=== PATIENT | female | born 1960 | race Two or more races ===

== ENCOUNTER 2023-02-01 12:20 | Emergency (ER) | payer MEDICAID, OTHER ==
[~2023-02-01] VITALS: Ht 154.9 cm; Wt 62.1 kg
[2023-02-01 12:41] VITALS: BP 140/90; PULSE 120; RESP 18; TEMP 99.7; O2SAT 95
[2023-02-01 13:43] LABS: FLU A ANTIGEN negative (NEGATIVE); FLU B ANTIGEN NEGATIVE (NEGATIVE)
[2023-02-01] MEDS ORDERED: ACETAMINOPHEN EXTRA STRENGTH 500 MG TAB PO ONE (13:45)
[2023-02-01] MEDS ORDERED: NACL 0.9% 1,000 ML IV ONE (13:45)
[2023-02-01] MEDS ORDERED: KETOROLAC 30 MG/ML VIAL IVP ONE (13:45)
[2023-02-01] MEDS ORDERED: KETOROLAC 30 MG/ML VIAL ONE (14:50)
[2023-02-01] MEDS ORDERED: ACETAMINOPHEN EXTRA STRENGTH 500 MG TAB ONE (14:50)
[2023-02-01] MEDS ORDERED: ALBU0.63 NEB (15:23)
[2023-02-01] MEDS ORDERED: ACET-10509 PO (15:23)
[2023-02-01] MEDS ORDERED: TAM75 PO (15:23)
[2023-02-01 15:40] VITALS: BP 135/80; PULSE 89; RESP 18; TEMP 98; O2SAT 99
== END 2023-02-01 15:40 | disposition home or self-care (01) ==
LOC: MED 12:20
DX: U07.1 COVID-19 (principal); E11.9 Type 2 diabetes mellitus without complications; Z88.5 Allergy status to narcotic agent; Z88.8 Allergy status to other drugs, medicaments and biological substances; Z79.899 Other long term (current) drug therapy; Z79.4 Long term (current) use of insulin
CPT/HCPCS: 71045; 87426; 87804; 96361; 96374; 99284; J1885; J7030